=== PATIENT | male | born 1965 | race Caucasian/White ===

== ENCOUNTER → 2020-08-30 | Outpatient (CLI) | payer BC, OTHER ==
--- NOTE | 2020-08-30 10:15 | Diagnostic Imaging Report ---
INDICATION: Shoulder pain. FINDINGS: There is no separation of the AC joint or CC interval. There is some irregularity of the distal acromion which may be on an arthritic or old traumatic basis. The glenohumeral joint shows only mild arthritic narrowing. No fracture or dislocation. There are a few subcortical cysts in the superior glenoid. IMPRESSION: Likely degenerative changes to the acromioclavicular and glenohumeral joints. No acute appearing abnormality. Dictated by: Dictated on workstation # [id number]
== END ==
LOC: RAD 09:07
PROVIDERS: ATTEND Family Medicine
DX: M25.512 Pain in left shoulder (principal)
CPT/HCPCS: 73030

== ENCOUNTER 2021-07-10 05:35 | Outpatient (CLI) | payer BC ==
[~2021-07-10] VITALS: Ht 180.3 cm; Wt 99.8 kg
[2021-07-10] MEDS ORDERED: ATOR40TA70 PO (12:32)
[2021-07-10] MEDS ORDERED: METF-397 PO (12:32)
== END 2021-07-10 12:56 | disposition home or self-care (01) ==
LOC: PREOP 05:35
PROVIDERS: ATTEND Surgery
DX: Z01.818 Encounter for other preprocedural examination (principal)

== ENCOUNTER 2021-07-21 12:48 | Day surgery (SDC) | payer BC ==
[~2021-07-21] VITALS: Ht 180.3 cm; Wt 99.8 kg
[~2021-07-21 12:48] MED LIST: ATOR40TA70 PO; METF-397 PO
[2021-07-21] MEDS ORDERED: LACTATED RINGERS 1,000 ML IV ONE (12:55)
[2021-07-21 13:05] VITALS: BP 126/86
[2021-07-21] MEDS ORDERED: LACTATED RINGERS 1,000 ML IV STA (13:17)
[2021-07-21] MEDS ORDERED: PROPOFOL INJECTION 50 ML IV ONE (14:39)
--- NOTE | 2021-07-21 15:32 | Anesthesia-General Post-Op ---
MAC Patient Condition Mental Status/LOC: Same as Preop Cardiovascular: Satisfactory Nausea/Vomiting: Absent Respiratory: Satisfactory Pain: Controlled Complications: Absent Post Op Complications Complications None Follow Up Care/Instructions Patient Instructions None needed. Anesthesiology Discharge Order Discharge Order Patient is doing well, no complaints, stable vital signs, no apparent adverse anesthesia problems. No complications reported per nursing. ANABEL EVANS CRNA Jul 21, 2021 15:32
[2021-07-21 15:33] VITALS: BP 148/79
[2021-07-21 15:35] VITALS: BP 135/76
[2021-07-21 15:55] VITALS: BP 135/76
--- NOTE | 2021-07-22 02:43 | OPERATIVE REPORT ---
DATE OF SERVICE: 07/21/2021 PREOPERATIVE DIAGNOSIS: History of colon polyps. POSTOPERATIVE DIAGNOSIS: Colon polyps. PROCEDURE: Colonoscopy with hot biopsy polypectomy x6. Cold biopsies of sigmoid mass with Samantha inking. INDICATIONS: The patient is a 56-year-old male with history of colon polyps. He understands risks and benefits of procedure and wishes to proceed. Consent was signed in the chart. DESCRIPTION OF PROCEDURE: The patient was taken to the endoscopy suite, placed in left lateral recumbent position. Timeout was performed. A digital rectal exam was performed. No palpable polyps, masses or ulcerations. Scope was inserted in the rectum and advanced all the way to cecum with minimal difficulty. Prep was adequate. Scope was slowly retracted back. There were no polyps, masses or ulcerations within the cecum and ascending colon. In transverse colon, there were three small polyps, which hot biopsy polypectomy was performed. Scope was then continuously retracted back into the descending colon, which another two small polyps were present, which hot biopsy polypectomy was performed. Scope was then continuously retracted back. In the sigmoid colon, a small mass, which was broad based which could not be removed safely endoscopically. Two biopsies of this area was obtained. Just distal to the area in two locations, 1 mL of Samantha ink was injected again in 1 mL in two spots. Scope was then continuously retracted back. Another small polyp was present in the sigmoid colon, which hot biopsy polypectomy was performed. Once in the rectum, scope was retroflexed noting some slight internal hemorrhoids. No other pathology. Scope was returned to its normal position, slowly withdrawn until completely removed. The patient tolerated procedure well without any complications, taken to recovery room in stable condition. RECOMMENDATIONS: The patient will follow up on pathology. May need resection of the area of the mass. We will await pathology results. If no pathology such as tubular adenoma would consider repeating colonoscopy to rebiopsy. Further recommendations pending biopsy results. The patient will need repeat colonoscopy likely in three years if not done earlier. Job ID: [id number] DocumentID: [id number] Dictated Date: 07/21/2021 19:11:48 Mill Operator Date: 07/22/2021 02:42:48 Dictated By: DO RADHA HERRON
== END 2021-07-21 15:55 | disposition home or self-care (01) ==
LOC: ENDO 12:48
PROVIDERS: ATTEND Surgery
DX: Z12.11 Encounter for screening for malignant neoplasm of colon (principal); K63.5 Polyp of colon; Z87.19 Personal history of other diseases of the digestive system

== ENCOUNTER → 2021-08-24 | Outpatient (CLI) | payer BC | END | disposition home or self-care (01) | LOC: PREOP 05:38 | PROVIDERS: ATTEND Surgery | DX: Z01.818 Encounter for other preprocedural examination (principal) ==

== ENCOUNTER → 2022-10-26 | Outpatient (CLI) | payer BC ==
--- NOTE | 2022-10-26 11:50 | Diagnostic Imaging Report ---
PROCEDURE: CT urinary tract, rule out kidney stone. TECHNIQUE: Multiple contiguous axial images were obtained through the abdomen and pelvis without the use of intravenous contrast. Auto Exposure Controls were utilized during the CT exam to meet ALARA standards for radiation dose reduction. INDICATION: 57-year-old male, left-sided flank pain since last night. Microscopic hematuria. CORRELATION STUDY: None. FINDINGS: LOWER THORAX: No infiltrate. Minimal scarring or atelectasis at the lung bases. LIVER: Unremarkable on unenhanced imaging. GALLBLADDER: Present and unremarkable. No bile duct dilatation. SPLEEN: Unremarkable. PANCREAS: Unremarkable. ADRENAL GLANDS: Small 9 mm nodule at the tip of the left adrenal gland. Incomplete characterized but favors probable small adenoma. KIDNEYS/BLADDER: Early staghorn developing calcification in the inferior pole of the left kidney, 15 x 9 x 13 mm. Additional somewhat lobulated more peripheral calcification in the inferior pole of the left kidney measuring up to 0.9 cm. There is suggestion of very mild dilatation of the left ureter without ureteral calcification. However, there is a small 3 mm calcification in the dependent urinary bladder likely reflecting recently passed stone. Trace left perinephric stranding. ABDOMINAL AORTA: Trace wall calcification, nonaneurysmal. A few shotty aortocaval lymph nodes. GASTROINTESTINAL TRACT: Colonic diverticulosis without diverticulitis. No gastrointestinal tract obstruction. Normal appendix. No abdominal ascites. REPRODUCTIVE: Prostate gland with a few coarse calcifications. OSSEOUS STRUCTURES: Nonacute pars interarticularis defect at the L5 level. Bilateral foraminal narrowing owing to disc osteophyte formation. IMPRESSION: 1. Small, 3 mm calcification within the urinary bladder along with mild left-sided ureteral dilatation and perinephric stranding. Features favor likely recently passed left-sided renal stone. 2. There is presence of a developing staghorn-type calcification in the left kidney. Dictated by: Dictated on workstation # [id number]
== END ==
LOC: RAD 10:59
PROVIDERS: ATTEND Family Medicine
DX: N28.89 Other specified disorders of kidney and ureter (principal); N32.89 Other specified disorders of bladder; N28.82 Megaloureter
CPT/HCPCS: 74176